=== PATIENT | male | born 1975 | race Caucasian/White ===

== ENCOUNTER 2021-10-11 08:22 | Observation (INO) | payer OTHER, SELFPAY ==
--- NOTE | ~2021-10-11 | MR_ITS ---
EXAMINATION: MR MRCP wo/w con/w 3D wo ind DATE: 10/12/2021 08:04 INDICATION: Abdominal pain. Vomiting. Abnormal liver function tests. TECHNIQUE: Magnetic resonance imaging (MRI) of the abdomen was performed without and with 16 mL Multi Quita intravenous contrast. Sequences included coronal T2-weighted FS FSE, coronal T2-weighted FSE, a xial T1-weighted LAVA, coronal FS FIESTA, axial dual-echo T1-weighted SPGR, coronal lava-FLEX, sagitt al T2-weighted FSE, axial T2-weighted FSE, and axial DWI. Thick-slab T2-weighted FSE images were obta ined for magnetic resonance cholangiopancreatography (MRCP). Maximum intensity projection 3-D reconst ructions of the volumetric data were created by the technologist. Postcontrast sequences included cor onal LAVA-flex and time course of axial T1-weighted LAVA. COMPARISON: Ultrasound 10/11/2021, CT abdomen and pelvis 10/11/2021, 08/15/2019 FINDINGS: ABDOMEN MRI: There is diffuse hepatic steatosis. The gallbladder is absent. The spleen is normal. Johansen creas divisum is noted. The adrenal glands are normal. There is a 13 mm hemorrhagic cyst in right kid hannah. There are cysts in left kidney measuring up to 3 mm. There are no dilated loops of bowel. There is fat stranding at the root of the small bowel mesentery. There is a small volume of ascites. There are no pathologically enlarged lymph nodes. ABDOMEN MRCP: The common duct is normal and measures 3 mm. No choledocholithiasis. IMPRESSION: 1. Fat stranding at the root of the small bowel mesentery with worsening from 08/15/2019, consistent w ith mesenteric panniculitis. 2. Small volume of ascites. 3. Diffuse hepatic steatosis. 4. Normal biliary tree status post cholecystectomy. 5. Mild contrast reaction. The patient experienced itchiness of the upper body after the exam. He den ied shortness of breath or difficulty swallowing. Vital signs were normal. The patient understood to report this history of contrast reaction if he needs MRI contrast in the future. Reviewed, dictated and finalized at location A. ICE PLANNER IMPRESSION: 1. Fat stranding at the root of the small bowel mesentery with worsening from , consistent with mesenteric panniculitis. 2. Small volume of ascites. 3. Diffuse hepatic steatosis. 4. Normal biliary tree status post cholecystectomy. 5. Mild contrast reaction. The patient experienced itchiness of the upper body after the exam. He denied shortness of breath or difficulty swallowing. Vital s igns were normal. The patient understood to report this history of contrast nikole ction if he needs MRI contrast in the future.
--- NOTE | ~2021-10-11 | XR_ITS ---
EXAMINATION: XR chest 2V EXAM DATE: 10/11/2021 09:48 INDICATION: Nausea vomiting dehydration. TECHNIQUE: Frontal and lateral projections of the chest obtained and reviewed. There is no prior sonia dy for comparison. FINDINGS: The lungs are clear. There are no pleural effusions. The cardiomediastinal silhouette is within normal limits. There is no pneumothorax suspected. The bones and soft tissues are unremarkab le. IMPRESSION: Unremarkable chest x-ray exam. Reviewed, dictated and finalized at location A. ITURE REPRODUCER
--- NOTE | ~2021-10-11 | CT_ITS ---
EXAMINATION: CT abdomen pelvis w con DATE: 10/11/2021 10:02 INDICATION: Abdominal pain. Nausea, vomiting, and diarrhea. TECHNIQUE: Computed tomography (CT) of the abdomen and pelvis was performed with 100 mL Omnipaque 350 intravenous contrast. Automated exposure control and iterative reconstruction technique were employe d. The dose-length product was 400.32 mGy-cm. COMPARISON: CT abdomen and pelvis 08/15/2019 FINDINGS: The visualized portions of the lung bases without pneumonia or pleural effusion. The heart size is normal. No pericardial effusion. The liver and spleen are normal. There are changes of cholec ystectomy. The pancreas, adrenal glands, and left kidney are normal. There is a 14 mm cyst in right k idney. There are no dilated loops of bowel. The appendix is normal. There is fat stranding at the ayla t of the small bowel mesentery. There are no pathologically enlarged lymph nodes. There is no free in traperitoneal fluid. There is mild thoracolumbar spondylosis. IMPRESSION: 1. Worsened fat stranding at the root of the small bowel mesentery, consistent with mesenteric pannic ulitis. Reviewed, dictated and finalized at location A. NECK HAMMERER IMPRESSION: 1. Worsened fat stranding at the root of the small bowel mesentery, consistent with mesenteric panniculitis.
--- NOTE | ~2021-10-11 | US_ITS ---
EXAMINATION: US abdomen limited DATE: 10/11/2021 12:54 INDICATION: Abnormal liver function tests. TECHNIQUE: Multiple grayscale and Doppler ultrasound images of the abdomen were obtained. COMPARISON: CT abdomen and pelvis 10/11/2021 FINDINGS: The visualized portions of the head of the pancreas are normal. The liver is normal without focal lesion. No liver surface nodularity. There is normal flow in main portal vein. The gallbladder is absent. The common duct is normal and measures 4 mm. IMPRESSION: 1. Normal right upper quadrant ultrasound status post cholecystectomy. Reviewed, dictated and finalized at location A. RITY SALES MANAGER
[2021-10-11 08:40] VITALS: BP 112/87; PULSE 89; RESP 23; TEMP 36.6; O2SAT 98
[2021-10-11 09:02] LABS: Basophils Absolute Auto 0.1 K/mm3 (0.0-0.1); Basophils Percent Auto 0.7 % (0.2-1.2); Eosinophils Percent Auto 0.2 % (0-4.4); Hemoglobin 18.6 g/dL (14.0-18.0); Immature Granulocyte Absolute 0.03 K/mm3 (0.00-0.031); Immature Granulocyte Percent A 0.3 % (0-0.5); Lymphocytes Absolute Auto 0.98 K/mm3 (0.9-3.2); Lymphocytes Percent Auto 10.3 % (18.3-44.2); Mean Corpuscular HGB Conc 34.4 g/dl (32-36); Mean Corpuscular Hemoglobin 30.2 pg (26-34); Mean Corpuscular Volume 87.8 fl (80-100); Monocytes Absolute Auto 0.8 K/mm3 (0.1-0.6); Monocytes Percent Auto 8.7 % (2.6-8.5); Neutrophils Absolute Auto 7.6 K/mm3 (1.3-6.7); Neutrophils Percent Auto 79.8 % (45.5-73.1); Platelet Count Result 244 k/mm3 (150-375); Red Blood Count 6.15 M/mm3 (4.6-6.20); White Blood Count 9.5 K/mm3 (4.5-10.0)
[2021-10-11 09:16] LABS: Alanine Aminotransferase 265 U/L (4-50); Albumin Level 4.4 g/dL (3.5-5.1); Alkaline Phosphatase 112 U/L (38-126); Anion Gap 10 mmol/L (8-16); Aspartate Amino Transferase 373 U/L (17-59); Bilirubin,Total 2.4 mg/dL (0.2-1.3); Blood Urea Nitrogen 25 mg/dL (9-20); Calcium 8.8 mg/dL (8.4-10.2); Carbon Dioxide 19 mmol/L (22-30); Chloride 104 mmol/L (98-107); Estimated CRCL calculation 79 ml/min; Estimated Glomerular Filt Rate > 60; Glucose 134 mg/dL (65-110); Lipase 57 U/L (23-300); Potassium 4.9 mmol/L (3.4-5.0); Sodium 133 mmol/L (137-145)
[2021-10-11] MEDS: ONDANSETRON INJ 4 MG/2 ML VIAL IV PUSH ×2 (09:22→20:21)
[2021-10-11] MEDS: SODIUM CHLORIDE 0.9% IV 1,000 ML 999 ML IV CONT ×2 (09:22→13:24)
--- NOTE | 2021-10-11 09:26 | ECG_ITS ---
Measurements Intervals [place] Rate: 78 P: 39 IL: 138 QRS: 27 QRSD: 82 T: 40 QT: 360 QTc: 412 Interpretive Statements SINUS RHYTHM POSSIBLE LEFT ATRIAL ENLARGEMENT [-0.1mV P WAVE IN V1/V2] BORDERLINE ECG NO PREVIOUS ECG AVAILABLE FOR COMPARISON Electronically Signed On 10-11-2021 15:11:25 ENVELOPE PRESS OPERATOR by Obed Boykin M.D.
--- NOTE | 2021-10-11 09:37 | ED.NAVMDI ---
HPI - Nausea/Vomiting/Diarrhea General Chief complaint: Nausea/Vomiting/Diarrhea Stated complaint: n/v/d Time Seen by Provider: 10/11/21 09:11 Source: patient Mode of arrival: ambulatory Limitations: no limitations History of Present Illness HPI Narrative: This is a 26-year-old male that presents to the emergency department for nausea, vomiting and diarrhea. Ongoing since yesterday. Reports he feels as though he is dehydrated. He had a syncopal episode yesterday. Reports he was sitting down in his chair feeling very nauseous. His vision started to go black and he passed out. Denies fever, chest pain, shortness of breath, or dysuria. Related Data Home Medications Medication Instructions Recorded Confirmed No Home Medications 10/11/21 10/11/21 Allergies Allergy/AdvReac Type Severity Reaction Status Date / Time azithromycin Allergy Unknown Anaphylactic Verified 10/11/21 08:47 Shock FIGS Allergy Unknown ANAPHYLAXIS Uncoded 06/18/16 12:28 Review of Systems Review of Systems: CONSTITUTIONAL: Denies fever GASTROINTESTINAL: Reports abdominal pain, nausea, vomiting, and diarrhea. GENITOURINARY: Denies dysuria or hematuria. All systems reviewed & are unremarkable except as noted in HPI and below PMFSH Past Medical History Medical History (Updated 10/11/21 @ 12:39 by Calista Wolf PA-C) History of kidney stones Surgical History Surgical History (Updated 08/15/19 @ 12:49 by Natan Leiva) History of cholecystectomy Hx of arthroscopy of right knee Social History Social History (Updated 08/15/19 @ 12:49 by Natan Leiva) Smoking packs per day: 0.5 Smoking cigarettes per day: 10.0 Smoking status: Current every day smoker Gender identity (if verbalized by the patient): Male Exam Narrative: GENERAL: Well-appearing, well-nourished, and in no acute distress. HEAD: Normocephalic, atraumatic. EYES: EOMI. ENT: Mucous membranes dry. Oropharynx without tonsillar hypertrophy exudate or other lesions. CHEST: Clear to auscultation. No respiratory distress. No wheezes rales or rhonchi HEART: Regular rate and rhythm. No murmur heard. Normal peripheral pulses. ABDOMEN: Soft, nontender, nondistended, normal active bowel sounds. EXTREMITIES: Normal range of motion. No edema. SKIN: Warm, dry, no rash. NEURO: No focal deficits. Alert and oriented x3. PSYCH: Normal mood and affect Course Consultations Consultation #1: Spoke with Dr. Garcia about patient and workup. Recommends antibiotics. Will consult if patient is admitted. ERCP if admitted Date: 10/11/21 Time: 12:00 Consultation #2: Spoke with hospitalist about patient and workup who accepts admission Date: 10/11/21 Time: 12:30 Vital Signs Vital signs: Vital Signs Temperature 97.8 F 10/11/21 08:40 Pulse Rate 89 10/11/21 08:40 Respiratory Rate 23 H 10/11/21 08:40 Blood Pressure 112/87 10/11/21 08:40 Pulse Oximetry 98 10/11/21 08:40 Temperature 97.8 F 10/11/21 08:40 Pulse Rate 89 10/11/21 08:40 Respiratory Rate 23 H 10/11/21 08:40 Blood Pressure 112/87 10/11/21 08:40 Pulse Oximetry 98 10/11/21 08:40 MDM - Nausea/Vomiting/Diarrhea MDM Narrative Medical decision making narrative: Patient presents to the emergency department for nausea, vomiting and diarrhea. Ongoing since yesterday. He is afebrile and nontoxic-appearing. CBC is without leukocytosis. Does show hemoconcentration. Metabolic panel with evidence of dehydration and transaminitis. Lipase is normal. UA without evidence of infection. Patient reporting a syncopal episode yesterday. EKG without concerning changes. Chest x-ray without acute findings. Baseline troponin is negative. Spoke with Dr. Garcia about patient and workup. Recommends antibiotics. Will consult if patient is admitted. ERCP if admitted. Spoke with patient about workup. Will be admitted for further management of dehydration and further workup. Spoke with hospitalist about p
[2021-10-11 10:09] LABS: INR 1.2; Prothrombin Time 14.5 Seconds (11.1-14.7)
[2021-10-11 10:17] LABS: Troponin I < 0.012 ng/mL (0.000-0.034)
[2021-10-11 11:15] LABS: Add Urine Microscopic? YES; Appearance Urine Clear (Clear); Bilirubin Urine Negative (Negative); Blood Urine Negative (Negative); Color Urine Yellow (Yellow); Glucose Urine UA Negative (Negative); Ketones Urine Negative (Negative); Leukocyte Esterase Ur Negative LEU/UL (Negative); Mucus Urine Few /lpf; Nitrate Urine Negative (Negative); Protein Urine Negative (Negative); Squamous Epithelial Cell Urine Rare /hpf (Few); WBC Urine 0-3 /hpf
[2021-10-11 13:25] VITALS: BP 128/2; PULSE 80; RESP 16; O2SAT 96
--- NOTE | 2021-10-11 13:41 | PC.NURSE ---
Attempted to call [facility] with no floor answer
[2021-10-11] MEDS: IBUPROFEN IV 400 MG in SODIUM CHLORIDE 0.9% IV 100 ML 208 ML IVPB (13:54)
--- NOTE | 2021-10-11 14:02 | PM.IMHP ---
H&P: HPI History of Present Illness Date/Time: Patient was placed observation status for expected length of stay less than 23 hours for management, will plan to re-evaluate tomorrow for improvement. 10/11/21 14:02 Chief Complaint: Nausea, vomiting, diarrhea Narrative: Mr. Person this is a 46-year-old gentleman who presented emergency room with complaints of nausea, vomiting, and diarrhea since yesterday. Patient states that yesterday around noon he started having some episodes of diarrhea but thought it was a bug that would go away quickly and decided to go to work in the evening. Patient was eating lunch at 11:00 p.m. and states that he began feeling extremity ?awful? and began having extreme nausea and then vomiting and diarrhea. Patient then called his to come pick him up from the hospital. Patient states throughout the night he continued to have episodes of nausea, vomiting, and diarrhea. Patient states that he did sleep a little bit through the night and when he woke up this morning he felt like he was too weak to do anything and asses to bring him to the hospital. Patient denies any lightheadedness, dizziness, syncopal, or near syncopal episodes. Patient denies any chest pain or shortness of breath. Patient states he has had a headache off and on since yesterday. Patient denies any new foods or restaurant. Patient denies any recent travel. Patient denies taking any home medications and states he does take some [id number] supplements. Patient states he does not follow-up with a primary care provider routine basis. Patient states he may drink 1 alcoholic beverage per week and typically it would be 1 oz of liquor on the rocks. Review of Systems Review of Systems: A 12 point review of systems was completed patient all pertinent positive and negative per HPI the remainder are unremarkable. [facility] Past Medical History Medical History (Updated 10/11/21 @ 14:14 by Renea Atkins APRN) History of kidney stones Surgical History Surgical History (Updated 08/15/19 @ 12:49 by Natan Leiva) History of cholecystectomy Hx of arthroscopy of right knee Social History Social History (Updated 08/15/19 @ 12:49 by Natan Leiva) Smoking packs per day: 0.5 Smoking cigarettes per day: 10.0 Smoking status: Current every day smoker Gender identity (if verbalized by the patient): Male Meds Home Medications and Allergies Home Medications Medication Instructions Recorded Confirmed Type No Home Medications 10/11/21 10/11/21 History Allergies Allergy/AdvReac Type Severity Reaction Status Date / Time azithromycin Allergy Unknown Anaphylactic Verified 10/11/21 08:47 Shock FIGS Allergy Unknown ANAPHYLAXIS Uncoded 06/18/16 12:28 Vital Signs Vital Signs - 24 hr 10/11/21 08:40 10/11/21 13:25 Temperature 36.6 C Pulse Rate 89 80 Respiratory Rate 23 H 16 Blood Pressure 112/87 128/2 L Pulse Oximetry 98 96 Exam Narrative: Constitutional: Patient is well-nourished in no acute distress. Patient is alert and oriented x3 HEENT: Moist mucous membranes. No scleral icterus. No lymphadenopathy. Neck: No carotid bruits noted no JVD noted Lungs: Lung sounds are clear to auscultation bilaterally. No accessory muscle use. No rhonchi, rales, or wheezes noted. Cardiovascular: Apical pulse is regular rate and rhythm. S1-S2 noted, no S3 or S4 noted. No gallops, murmurs, or rubs noted. Abdomen: Soft, round, and nontender with deep palpation. No palpable masses. Bowel sounds are hyperactive. Extremities: No edema. Nontender. Skin: No rashes or lesions. Warm and dry. Skin is intact. Neurological: No focal neurological deficits. Cranial nerves II-XII grossly intact. Psychiatric: Cooperative, appropriate mood, and affect H&P: Results Labs Labs: Short CBC 10/11/21 Range/Units 08:52 WBC 9.5 (4.5-10.0) K/mm3 Hgb 18.6 H (14.0-18.0) g/dL Hct 54.0 H (42.0-52.0) % Plt Count
[2021-10-11 14:26] VITALS: BP 120/76; PULSE 80; RESP 18; TEMP 36.8; O2SAT 95
[2021-10-11] MEDS: SODIUM CHLORIDE 0.9% IV 1,000 ML 125 ML IV CONT ×3 (14:30→23:58)
[2021-10-11 17:15] LABS: Hepatitis B Surface Antigen Negative (Negative)
[2021-10-11 17:22] LABS: HAV RESULT Negative (Negative); Hepatitis B Core IgM Result Negative (Negative)
[2021-10-11 17:32] LABS: Hepatitis C Virus Antibody Negative (Negative)
[2021-10-11 22:07] LABS: Influenza A QL RT-PCR Negative (Negative); Influenza B QL RT-PCR Negative (Negative); SARS-CoV-2 RNA PCR Negative
[2021-10-11 22:19] VITALS: BP 110/65; PULSE 77; RESP 18; TEMP 36.8; O2SAT 97
[2021-10-11 22:20] VITALS: BP 112/70; PULSE 80; RESP 18; TEMP 36.6; O2SAT 97
[2021-10-12 01:24] VITALS: BP 117/76; PULSE 80; RESP 18; TEMP 36.7; O2SAT 17
[2021-10-12 04:12] VITALS: BP 116/70; PULSE 80; RESP 18; TEMP 36.7; O2SAT 98
[2021-10-12 05:50] LABS: Alanine Aminotransferase 133 U/L (4-50); Albumin Level 3.1 g/dL (3.5-5.1); Alkaline Phosphatase 71 U/L (38-126); Anion Gap 2 mmol/L (8-16); Aspartate Amino Transferase 71 U/L (17-59); Bilirubin,Total 0.4 mg/dL (0.2-1.3); Blood Urea Nitrogen 12 mg/dL (9-20); Calcium 7.8 mg/dL (8.4-10.2); Carbon Dioxide 26 mmol/L (22-30); Chloride 108 mmol/L (98-107); Estimated CRCL calculation 79 ml/min; Estimated Glomerular Filt Rate > 60; Glucose 86 mg/dL (65-110); Sodium 136 mmol/L (137-145)
[2021-10-12 06:12] VITALS: BP 110/64; PULSE 79; RESP 18; TEMP 36.4; O2SAT 100
[2021-10-12 06:30] LABS: Basophils Percent Auto 0.6 % (0.2-1.2); Eosinophils Absolute Auto 0.2 K/mm3 (0-0.3); Eosinophils Percent Auto 2.5 % (0-4.4); Hematocrit 47.2 % (42.0-52.0); Hemoglobin 15.7 g/dL (14.0-18.0); Immature Granulocyte Absolute 0.01 K/mm3 (0.00-0.031); Immature Granulocyte Percent A 0.1 % (0-0.5); Lymphocytes Absolute Auto 2.13 K/mm3 (0.9-3.2); Lymphocytes Percent Auto 31.5 % (18.3-44.2); Mean Corpuscular HGB Conc 33.3 g/dl (32-36); Mean Corpuscular Hemoglobin 30.3 pg (26-34); Mean Corpuscular Volume 91.1 fl (80-100); Mean Platelet Volume 10.1 fl (7.4-10.4); Monocytes Absolute Auto 0.7 K/mm3 (0.1-0.6); Monocytes Percent Auto 10.4 % (2.6-8.5); Neutrophils Absolute Auto 3.7 K/mm3 (1.3-6.7); Neutrophils Percent Auto 54.9 % (45.5-73.1); Platelet Count Result 176 k/mm3 (150-375); Red Blood Count 5.18 M/mm3 (4.6-6.20); White Blood Count 6.8 K/mm3 (4.5-10.0)
[2021-10-12] MEDS: SODIUM CHLORIDE 0.9% IV 1,000 ML 125 ML IV CONT ×2 (06:48→16:41)
[2021-10-12] MEDS: diphenhydrAMINE HCl INJ 50 MG/ML VIAL 25 MG IV PUSH (08:31)
[2021-10-12] MEDS: ENOXAPARIN 40 MG/0.4 ML SYRINGE SUB-Q (08:32)
--- NOTE | 2021-10-12 10:08 | WPDGICN ---
Assessment and Plan Assessment and plan (1) Gastroenteritis: Code(s): K52.9 - Noninfective gastroenteritis and colitis, unspecified Status: Acute Assessment and Plan: acute onset and slowly feeling better but still with diarrhea will get stool samples liquid diet for now (2) Nausea and vomiting: Code(s): R11.2 - Nausea with vomiting, unspecified Status: Acute Assessment and Plan: no more vomiting but still some nausea medical treatment (3) Diarrhea: Code(s): R19.7 - Diarrhea, unspecified Status: Acute Assessment and Plan: stool samples, he was healthy previous to this presentation (4) Acute dehydration: Code(s): E86.0 - Dehydration Status: Acute Assessment and Plan: he was hemoconcentrated after several episodes of n/v/d feeling better, still on iv fluids (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 Status: Acute Assessment and Plan: incidental finding he denies previous abdominal pain or gi symptom (6) Transaminitis: Code(s): R74.01 - Elevation of levels of liver transaminase levels Status: Acute Assessment and Plan: probably from acute inflammation/infection going on already trending down reviewed mrcp (7) History of cholecystectomy: Code(s): Z90.49 - Acquired absence of other specified parts of digestive tract Status: Acute GI Consult Note Consult date/time: 10/12/21 10:08 Reason for consult: n/v, diarrhea HPI: Artis Person is a 46 year old male with previous cholecystectomy few years ago because cholelithiasis (around that time had EGD) and no other medical history. He came here with new onset of nausea, vomiting, and diarrhea that started night, he says that previously he was feeling normal. He woke up feeling sick with multiple episodes of loose stools, then intractable nausea and vomiting and was feeling weak, denies abdominal pain only growling . brought him to hospital, hb 18 consistent with hemoconcentration, also had elevated liver enzymes with bili 2.4, transaminases 300 but today improved with normal bili. Ultrasound normal s/p hernan confirmer by MRCP (reviewed), also possible mesenteric panniculitis. He never had colonoscopy. Nausea better today but still on liquid diet, still with diarrhea. WBC was normal, he was given iv abx in ER. Denies sick contacts, nobody at home is sick. Hepatitis panel negative, he denies etoh abuse. Review of Systems Constitutional: Constitutional: Denies chills Eyes: Eyes: Denies blurry vision ENT: Reports Normal hearing present Cardiovascular: Cardiovascular: Denies chest pain Respiratory: Respiratory: Denies dyspnea Gastrointestinal: Gastrointestinal: Reports diarrhea, Reports nausea and Reports vomiting Genitourinary: Genitourinary: Denies dysuria Musculoskeletal: Musculoskeletal: Denies neck pain Neurologic: Denies headache(s) Psychiatric: Psychiatric: Denies behavioral changes ON LICENSE OF [facility] Past Medical History Medical History (Updated 10/12/21 @ 10:24 by Moisés Garcia MD) Diarrhea Gastroenteritis History of kidney stones Surgical History Surgical History (Updated 10/12/21 @ 10:24 by Moisés Garcia MD) History of cholecystectomy Hx of arthroscopy of right knee Family History Family History (Updated 10/11/21 @ 21:39 by Tami Javier RN) Other Unknown family medical history Social History Social History (Updated 08/15/19 @ 12:49 by Natan Leiva) Smoking packs per day: 0.5 Smoking cigarettes per day: 10.0 Years smoked: 22 Smoking pack-years: 11.00 Smoking status: Current every day smoker Tobacco type: cigarettes Alcohol intake: current Drinks per week: 2 Substance use: never Gender identity (if verbalized by the patient): Male Spiritual care concerns: No Meds Home Medications and Allergies Home Medications Medicat
--- NOTE | 2021-10-12 11:44 | PM.IMPN ---
Progress Note: A&P Assessment and Plan (1) Gastroenteritis: Code(s): K52.9 - Noninfective gastroenteritis and colitis, unspecified Status: Acute Assessment and Plan: -acute onset -IVF, antiemetics -improving -GI consulted -stool studies (2) Nausea and vomiting: Code(s): R11.2 - Nausea with vomiting, unspecified Status: Acute Assessment and Plan: -Will be secondary to above. -Improving, on liquids still for now per GI (3) Transaminitis: Code(s): R74.01 - Elevation of levels of liver transaminase levels Status: Acute Assessment and Plan: -likely due to acute inflammation/infection currently going on -Patient did have ultrasound of abdomen that showed normal right upper quadrant ultrasound status post cholecystectomy with a normal common bile duct measuring at 4 mm. -MRCP reviewed -Hepatitis panel negative -Patient's coagulation panel and platelets are within normal limits. -GI consult -trending down (4) Acute dehydration: Code(s): E86.0 - Dehydration Status: Acute Assessment and Plan: -Secondary to nausea, vomiting, and diarrhea. -Will hydrate patient and continue to monitor laboratories. 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 Today he states he is feeling a little better. Nausea has improved some. No vomiting. Still having frequent watery diarrhea. No fevers. No cp/sob. On a liquid diet. Review of Systems Review of Systems: All systems reviewed & are unremarkable except as noted in HPI and below Exam Narrative: Constitutional: Patient is well-nourished in no acute distress. Patient is alert and oriented x3 HEENT: Moist mucous membranes. No scleral icterus. Neck: Supple Lungs: Lung sounds are clear to auscultation bilaterally. No accessory muscle use. No rhonchi, rales, or wheezes noted. Cardiovascular: RRR, no murmur Abdomen: Soft, non distended, and nontender with deep palpation. No palpable masses. Bowel sounds are hyperactive. Extremities: No edema. Nontender. Skin: No rashes or lesions. Warm and dry. Skin is intact. Neurological: No focal neurological deficits. Cranial nerves II-XII grossly intact. Psychiatric: Cooperative, appropriate mood, and affect Objective Data Vital Signs Vital Signs: Vital Signs - 24 hr 10/11/21 13:25 10/11/21 14:26 10/11/21 22:19 Temperature 98.2 F 98.2 F Pulse Rate 80 80 77 Respiratory Rate 16 18 18 Blood Pressure 128/2 L 120/76 110/65 Pulse Oximetry 96 95 97 10/11/21 22:20 10/12/21 01:24 10/12/21 04:12 Temperature 97.9 F 98.0 F 98.0 F Pulse Rate 80 80 80 Respiratory Rate 18 18 18 Blood Pressure 112/70 117/76 116/70 Pulse Oximetry 97 17 L 98 10/12/21 06:12 Temperature 97.6 F Pulse Rate 79 Respiratory Rate 18 Blood Pressure 110/64 Pulse Oximetry 100 Intake/Output Intake/Output: Intake & Output 10/09/21 10/10/21 10/11/21 10/12/21 23:59 23:59 23:59 23:59 Intake Total 3450 1700 Output Total 400 Balance 3450 1300 Meds/Results Medications: Active Medications Generic Name Dose Route Start Last Admin Trade Name Freq PRN Reason Stop Dose Admin Enoxaparin Sodium 40 mg 10/12/21 09:00 10/12/21 08:32 Enoxaparin 40 Mg/0.4 Ml Syringe SUB-Q 40 mg DAILY KATHARINA Administration Sodium Chloride 1,000 mls @ 125 mls/hr 10/11/21 13:25 10/12/21 06:48 Normal Saline Iv IV CONT 125 mls/hr .Q8H KATHARINA Administration Ketorolac Tromethamine 30 mg 10/11/21 13:31 Ketorolac 30 Mg/Ml Vial (*Bkc) IV PUSH Q6H PRN Pain Rated 4-6 Ondansetron HCl 4 mg 10/11/21 13:31 10/11/21 20:21 Ondansetron Inj 4 Mg/2 Ml [address]
[2021-10-12 14:00] VITALS: BP 120/75; PULSE 69; RESP 14; TEMP 37.2; O2SAT 97
[2021-10-12 19:23] VITALS: BP 121/69; PULSE 74; RESP 17; TEMP 36.8; O2SAT 98
[2021-10-13] MEDS: SODIUM CHLORIDE 0.9% IV 1,000 ML 125 ML IV CONT (01:30)
[2021-10-13 03:54] VITALS: BP 120/69; PULSE 60; RESP 17; TEMP 36.4; O2SAT 99
[2021-10-13 05:57] LABS: Hematocrit 44.2 % (42.0-52.0); Hemoglobin 14.8 g/dL (14.0-18.0); Mean Corpuscular HGB Conc 33.5 g/dl (32-36); Mean Corpuscular Hemoglobin 30.5 pg (26-34); Mean Corpuscular Volume 90.9 fl (80-100); Mean Platelet Volume 10.5 fl (7.4-10.4); Platelet Count Result 188 k/mm3 (150-375); Red Blood Count 4.86 M/mm3 (4.6-6.20); Red Cell Distribution Width 12.9 % (11.5-14.5); White Blood Count 5.9 K/mm3 (4.5-10.0)
[2021-10-13 06:08] LABS: Alanine Aminotransferase 92 U/L (4-50); Albumin Level 3.4 g/dL (3.5-5.1); Alkaline Phosphatase 73 U/L (38-126); Anion Gap 4 mmol/L (8-16); Aspartate Amino Transferase 39 U/L (17-59); Bilirubin,Total 0.3 mg/dL (0.2-1.3); Blood Urea Nitrogen 6 mg/dL (9-20); Calcium 8.1 mg/dL (8.4-10.2); Carbon Dioxide 24 mmol/L (22-30); Chloride 107 mmol/L (98-107); Estimated CRCL calculation 79 ml/min; Estimated Glomerular Filt Rate > 60; Glucose 85 mg/dL (65-110); Potassium 3.6 mmol/L (3.4-5.0); Sodium 135 mmol/L (137-145)
[2021-10-13] MEDS: ENOXAPARIN 40 MG/0.4 ML SYRINGE SUB-Q (09:35)
--- NOTE | 2021-10-13 09:39 | PM.IMPN ---
Progress Note: A&P Assessment and Plan (1) Gastroenteritis: Code(s): K52.9 - Noninfective gastroenteritis and colitis, unspecified Status: Acute Assessment and Plan: -acute onset -IVF, antiemetics -improving -GI consulted -stool studies pending -advance diet/dispo per GI (2) Nausea and vomiting: Code(s): R11.2 - Nausea with vomiting, unspecified Status: Acute Assessment and Plan: -secondary to above. (3) Transaminitis: Code(s): R74.01 - Elevation of levels of liver transaminase levels Status: Acute Assessment and Plan: -likely due to acute inflammation/infection currently going on -Patient did have ultrasound of abdomen that showed normal right upper quadrant ultrasound status post cholecystectomy with a normal common bile duct measuring at 4 mm. -MRCP reviewed -Hepatitis panel negative -Patient's coagulation panel and platelets are within normal limits. -GI consult -trending down (4) Acute dehydration: Code(s): E86.0 - Dehydration Status: Acute Assessment and Plan: -Secondary to nausea, vomiting, and diarrhea. -Will hydrate patient and continue to monitor laboratories. 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 Pt states nausea and vomiting have resolved. Having gas and minor gas pains in his abdomen. Still having frequent watery diarrhea. Tolerating full liquids. No fevers, cp, sob. Review of Systems Review of Systems: All systems reviewed & are unremarkable except as noted in HPI and below Exam Narrative: Constitutional: Patient is well-nourished in no acute distress. Patient is alert and oriented x3 HEENT: Moist mucous membranes. No scleral icterus. Neck: Supple Lungs: Lung sounds are clear to auscultation bilaterally. No accessory muscle use. No rhonchi, rales, or wheezes noted. Cardiovascular: RRR, no murmur Abdomen: Soft, non distended, and nontender with deep palpation. No palpable masses. Bowel sounds are hyperactive. Extremities: No edema. Nontender. Skin: No rashes or lesions. Warm and dry. Skin is intact. Neurological: No focal neurological deficits. Cranial nerves II-XII grossly intact. Psychiatric: Cooperative, appropriate mood, and affect Objective Data Vital Signs Vital Signs: Vital Signs - 24 hr 10/12/21 14:00 10/12/21 19:23 10/13/21 03:54 Temperature 98.9 F 98.3 F 97.5 F L Pulse Rate 69 74 60 Respiratory Rate 14 17 17 Blood Pressure 120/75 121/69 120/69 Pulse Oximetry 97 98 99 Intake/Output Intake/Output: Intake & Output 10/10/21 10/11/21 10/12/21 10/14/21 23:59 23:59 23:59 00:59 Intake Total 3450 3660 1550 Output Total 400 3 Balance 3450 3260 1547 Meds/Results Medications: Active Medications Generic Name Dose Route Start Last Admin Trade Name Freq PRN Reason Stop Dose Admin Enoxaparin Sodium 40 mg 10/12/21 09:00 10/13/21 09:35 Enoxaparin 40 Mg/0.4 Ml Syringe SUB-Q 40 mg DAILY KATHARINA Administration Sodium Chloride 1,000 mls @ 100 mls/hr 10/11/21 13:25 10/13/21 07:44 Normal Saline Iv IV CONT 100 mls/hr .Q10H KATHARINA Infusion Ketorolac Tromethamine 30 mg 10/11/21 13:31 Ketorolac 30 Mg/Ml Vial (*Bkc) IV PUSH Q6H PRN Pain Rated 4-6 Ondansetron HCl 4 mg 10/11/21 13:31 10/11/21 20:21 Ondansetron Inj 4 Mg/2 Ml Vial IV PUSH 4 mg Q6H PRN Administration Nausea And Vomiting Radiology Results: ITS Impressions Chest X-Ray 10/11/21 09:48 IMPRESSION: Unremarkable chest x-ray exam. Abdomen/Pelvis CT 10/11/21 10:08 IMPRESSION: 1. Worsened fat stranding at the root of the small
--- NOTE | 2021-10-13 10:50 | WPDGIPROGNO ---
Progress Note: A&P Assessment and Plan (1) Gastroenteritis: Code(s): K52.9 - Noninfective gastroenteritis and colitis, unspecified Status: Acute Assessment and Plan: improving, no more nausea and tolerating liquid diet- will advance still with diarrhea, pending stool samples but overall feels better hope that he can go home tomorrow (2) Diarrhea: Code(s): R19.7 - Diarrhea, unspecified Status: Acute Assessment and Plan: pending stool samples (3) Nausea and vomiting: Code(s): R11.2 - Nausea with vomiting, unspecified Status: Acute Assessment and Plan: resolved (4) Transaminitis: Code(s): R74.01 - Elevation of levels of liver transaminase levels Status: Acute Assessment and Plan: trending down probably from acute insult/inflammation on presentation (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 Status: Acute Subjective Date/time seen: 10/13/21 10:50 Interval history: feeling much better but still with diarrhea Review of Systems Review of Systems: All systems reviewed & are unremarkable except as noted in HPI and below Exam Const: General: comfortable and no acute distress HENMT: General nose exam: Normal nares present Eyes: General: appearance normal, both eyes and all related structures Neck: Neck: no JVD Resp: Auscultation: clear to auscultation bilaterally Cardio: Rate: regular rate Rhythm: regular rhythm GI: Inspection: non-distended GI Palp: Yes Soft to palpation and No Guarding due to palpation present (GI) Auscultation: normal bowel sounds Skin: General skin exam: normal color Neuro: General: gait normal Speech: normal speech Extrem: General: normal to inspection Psych: Mental Status: mental status grossly normal Objective Data Vital Signs Vital Signs: Vital Signs - 24 hr 10/12/21 14:00 10/12/21 19:23 10/13/21 03:54 Temperature 98.9 F 98.3 F 97.5 F L Pulse Rate 69 74 60 Respiratory Rate 14 17 17 Blood Pressure 120/75 121/69 120/69 Pulse Oximetry 97 98 99 Intake/Output Intake/Output: Intake & Output 10/10/21 10/11/21 10/12/21 10/14/21 23:59 23:59 23:59 00:59 Intake Total 3450 3660 1550 Output Total 400 3 Balance 3450 3260 1547 Meds/Results Medications: Active Medications Generic Name Dose Route Start Last Admin Trade Name Freq PRN Reason Stop Dose Admin Enoxaparin Sodium 40 mg 10/12/21 09:00 10/13/21 09:35 Enoxaparin 40 Mg/0.4 Ml Syringe SUB-Q 40 mg DAILY KATHARINA Administration Sodium Chloride 1,000 mls @ 100 mls/hr 10/11/21 13:25 10/13/21 07:44 Normal Saline Iv IV CONT 100 mls/hr .Q10H KATHARINA Infusion Ketorolac Tromethamine 30 mg 10/11/21 13:31 Ketorolac 30 Mg/Ml Vial (*Bkc) IV PUSH Q6H PRN Pain Rated 4-6 Ondansetron HCl 4 mg 10/11/21 13:31 10/11/21 20:21 Ondansetron Inj 4 Mg/2 Ml Vial IV PUSH 4 mg Q6H PRN Administration Nausea And Vomiting Radiology Results: ITS Impressions Chest X-Ray 10/11/21 09:48 IMPRESSION: Unremarkable chest x-ray exam. Abdomen/Pelvis CT 10/11/21 10:08 IMPRESSION: 1. Worsened fat stranding at the root of the small bowel mesentery, consistent with mesenteric panniculitis. Abdomen Ultrasound 10/11/21 12:56 IMPRESSION: 1. Normal right upper quadrant ultrasound status post cholecystectomy. MRCP 10/12/21 08:48 IMPRESSION: 1. Fat stranding at the root of the small bowel mesentery with worsening from 08/15/2019, consistent with mesenteric panniculitis. 2. Small volume of ascites. 3. Diffuse hepatic steatosis. 4. Normal biliary tree status post cholecystectomy. 5. Mild contrast reaction. The patient experienced itchiness of the upper body after the exam. He denied shortness of breath or difficulty swallowing. Vital signs were normal. The patient understood to report this history of contrast reaction if he needs MRI contrast in the future.
[2021-10-13] MEDS: SODIUM CHLORIDE 0.9% IV 1,000 ML 100 ML IV CONT (11:04)
[2021-10-13 14:00] VITALS: BP 127/91; PULSE 51; RESP 16; TEMP 36.1; O2SAT 99
--- NOTE | 2021-10-13 14:39 | PM.DS ---
DS: Admitting Diagnosis Discharge Date 10/13/21 Admitting Diagnosis gastroenteritis DS: Discharge Diagnosis Discharge Diagnosis (1) Gastroenteritis: Code(s): K52.9 - Noninfective gastroenteritis and colitis, unspecified Status: Acute Assessment and Plan: -acute onset -IVF, antiemetics -improving -GI consulted -stool studies pending -tolerated solids today -per GI stable for discharge with outpatient follow up -vitals stable, pt is non toxic appearing (2) Nausea and vomiting: Code(s): R11.2 - Nausea with vomiting, unspecified Status: Acute Assessment and Plan: -secondary to above -resolved (3) Transaminitis: Code(s): R74.01 - Elevation of levels of liver transaminase levels Status: Acute Assessment and Plan: -likely due to acute inflammation/infection currently going on -Patient did have ultrasound of abdomen that showed normal right upper quadrant ultrasound status post cholecystectomy with a normal common bile duct measuring at 4 mm. -MRCP reviewed -Hepatitis panel negative -Patient's coagulation panel and platelets are within normal limits. -trending down -GI follow up (4) Acute dehydration: Code(s): E86.0 - Dehydration Status: Acute Assessment and Plan: -Secondary to nausea, vomiting, and diarrhea. 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 Please see HPI for further details. Hospital Course: Please see above for details of hospital course. Status at Discharge Cognitive/behavioral status at discharge: stable Functional status at discharge: independent ambulation Time Spent with Patient Time attestation: Total time spent providing and/or coordinating discharge services: 35 Time spent: Greater than 30 minutes Exam Narrative: Constitutional: Patient is well-nourished in no acute distress. Patient is alert and oriented x3 HEENT: Moist mucous membranes. No scleral icterus. Neck: Supple Lungs: Lung sounds are clear to auscultation bilaterally. No accessory muscle use. No rhonchi, rales, or wheezes noted. Cardiovascular: RRR, no murmur Abdomen: Soft, non distended, and nontender with deep palpation. No palpable masses. Bowel sounds are hyperactive. Extremities: No edema. Nontender. Skin: No rashes or lesions. Warm and dry. Skin is intact. Neurological: No focal neurological deficits. Cranial nerves II-XII grossly intact. Psychiatric: Cooperative, appropriate mood, and affect DS: Data Data Completed and Pending Labs on day of discharge: Labs from last 24 hours 10/13/21 10/13/21 05:20 05:20 WBC 5.9 RBC 4.86 Hgb 14.8 Hct 44.2 MCV 90.9 MCH 30.5 MCHC 33.5 RDW 12.9 Plt Count 188 MPV 10.5 H Sodium 135 L Potassium 3.6 Chloride 107 Carbon Dioxide 24 Anion Gap 4 L BUN 6 L D Creatinine 1.00 Estim Creat Clear Calc 79 Estimated GFR > 60 Glucose 85 Calcium 8.1 L Total Bilirubin 0.3 AST 39 ALT 92 H Alkaline Phosphatase 73 Total Protein 6.0 L Albumin 3.4 L Discharge Plan Discharge Attending physician on discharge: Dayanna Hill Consulting providers: Moisés Garcia Discharging Clinician: Sharon Ignacio Anticipated Discharge Date/Time: 10/13/21 14:44 Patient Disposition: Home, Self-Care Activity: may shower Diet: bland Discharge Instructions: Maintain a bland diet with plenty of fluids. Return to lab in 1 week for repeat CMP. Please follow up with GI in 1-2 weeks if your symptoms persist. return to ED for any new or worsening symptoms.
[2021-10-15 13:13] LABS: Cytomegalovirus DNA Source Urine
[2021-10-16 20:20] LABS: EBV Nuclear Ab Interpretation Past; EBV Virus Capsid Ag IgM Ab <36.00 U/mL (<36.00)
--- NOTE | 2021-10-18 10:40 | PC.NURSE ---
Stool studies are negative.
== END 2021-10-13 15:15 | disposition home or self-care (01) ==
LOC: ANHED 12:39 → ANH3MED 13:18
PROVIDERS: Internal Medicine Gastroenterology; Nurse Practitioner Adult Health; Physician Assistant; Admitting Provider Internal Medicine; Emergency Provider Emergency Medicine; PCP Physician Assistant; Visit Provider Physician Assistant
DX: K52.9 Noninfective gastroenteritis and colitis, unspecified (principal); R11.2 Nausea with vomiting, unspecified; E86.0 Dehydration; K65.4 Sclerosing mesenteritis; R74.01 Elevation of levels of liver transaminase levels; K76.0 Fatty (change of) liver, not elsewhere classified; R18.8 Other ascites; T50.8X5A Adverse effect of diagnostic agents, initial encounter; L29.8 Other pruritus; F17.210 Nicotine dependence, cigarettes, uncomplicated; Z90.49 Acquired absence of other specified parts of digestive tract; Z20.822 Contact with and (suspected) exposure to COVID-19
CPT/HCPCS: 36415; 71046; 74177; 74183; 76376; 76705; 80053; 80074; 81001; 83690; 84484; 85025; 85027; 85610; 85730; 86664; 86665; 87045; 87177; 87209; 87427; 87496; 87502; 89055; 93005; 96361; 96365; 96367; 96372; 96375; 96376; 99285; A9577; C9803; G0378; J1200; J1650; J1741; J2405; J2543; J7030; Q9967; U0003; U0005